=== PATIENT | male | born 1970 | race Caucasian/White ===

== ENCOUNTER 2016-08-21 15:49 | Emergency (ER) | payer SELFPAY ==
[2016-08-21 15:50] VITALS: BMI 21.1
[2016-08-21 16:15] VITALS: TEMP 97.9
--- NOTE | 2016-08-21 16:32 | DIRPT ---
CLINICAL DATA: Shortness of breath, productive cough, smoker, COPD EXAM: CHEST 2 VIEW COMPARISON: None. FINDINGS: Cardiomediastinal silhouette is unremarkable. No acute infiltrate or pleural effusion. Mild perihilar bronchitic changes. Bony thorax is unremarkable. Bilateral nodular nipple shadow noted mid lung. IMPRESSION: No infiltrate or pulmonary edema. Mild perihilar bronchitic changes. Electronically Signed By: Gamaliel Lewis M.D. On: 08/21/2016 16:29
[2016-08-21] MEDS ORDERED: Albuterol/Ipratropium Neb 3 ML NEB NEB ONE (17:25)
[2016-08-21] MEDS ORDERED: METHYLPREDNISOLONE 125 MG/2 ML VIAL IV ONE (17:25)
--- NOTE | 2016-08-21 17:30 | EDPRACDOC ---
- General Information Chief Complaint: Dyspnea/Resp distress Stated Complaint: SHORTNESS OF BREATH Information Source: Patient Home Medications: Home Medications Atenolol Unknown Dose 1 tab PO DAILY 08/21/16 Baclofen 5 mg PO TID 08/21/16 Gabapentin 300 mg PO BID 08/21/16 Gabapentin 600 mg PO QHS 08/21/16 Hydrocodone Bit/Acetaminophen [[place] 10-325 Tablet] 1 tab PO TID 08/21/16 Insulin Isophane/Regular 70-30 [Humulin 70-30] 0 units SQ .SLIDING SCALE Levofloxacin [Levaquin] 750 mg PO DAILY #10 tab 08/21/16 Prednisone [Sterapred DS 10 mg/12 day pack] 48 tab PO DIR #1 pack 08/21/16 Allergies/Adverse Reactions: Allergies Allergy/AdvReac Type Severity Reaction Status Date / Time No Known Allergies Allergy Verified 08/21/16 17:56 - History of Present Illness HPI: C/o inc SOB and productive cough (green) x 3 days. Hx of COPD, DM1. Denies fever , sore throat, body aches, N/V/D, nasal congestion, changes in urine or BM. Tired nebulizer tx at home but states it made it worse. Shortness of Breath: Moderate Relevant History: Reports: COPD Cough: Reports: Productive, Green Rhinorrhea: Reports: Green Ear Symptoms: Reports: None SOB Worsens with: Reports: Exertion, Coughing SOB Improves with: Reports: Sitting up, Inhaler (symbicort) Associated Signs and symptoms: Reports: Cough ED Past Medical History - History Reviewed Yes Nurses notes reviewed and agree except as marked - Patient Medical History Respiratory History: Reports: COPD, Emphysema Psychological History: Denies: Depression Systemic History: Reports: Diabetes (INSULIN DEPEND.) - Social Medical History Smoking Status: Heavy tobacco smoker (5 or more cigarettes/day or daily pipe/ cigar) EDM Review of Systems - Review of Systems ROS Negative Except as Marked: Yes All systems reviewed and were negative except as marked Respiratory: Cough, Shortness of Breath Endocrine: Diabetes - Physical Exam Constitutional: Alert Oriented to: Time, Person, Place Last recorded Vital Signs: Last Vital Signs Temp 97.9 F 08/21/16 16:11 Pulse 100 08/21/16 16:51 Resp 20 08/21/16 16:51 BP 179/92 08/21/16 16:51 Pulse Ox 92 08/21/16 16:51 Oxygen Pulse Oxygen Saturation 92 O2 Device Room Air Oxygen Flow Rate Fraction of Inspired Oxygen ( FIO2) - HEENT Head: Normal Eye Exam: negative: Conjunctival Injection, Scleral Icterus Oropharynx: negative: Drooling TMJ: Normal Nose: Congestion Neck: Normal - Respiratory/Cardiovascular Respiratory: Rhonchi (bilateral) Cardiovascular: Normal - GI Tenderness: Non tender - Musculoskeletal Back: Normal Extremities: Normal - Integumentary Skin: Normal - Neurologic Mood Description: Normal Thought: Coherent ED SOB MDM - Results Result Diagrams: 08/21/16 17:43 08/21/16 17:43 Results: POC Capillary Glucose 80 MG/DL (70-99) 08/21/16 16:16 Lab Results 08/21/16 16:16 POC Capillary Glucose 80 - Additional Information Additional Information: Pt O2 sats 92-94 on RA. Decision Time to Discharge: 18:39 - Departure Disposition: Home Condition: Stable Final Diagnosis: COPD (chronic obstructive pulmonary disease) with acute bronchitis Instructions: Upper Respiratory Infection (ED), Acute Bronchitis (ED), COPD ( Chronic Obstructive Pulmonary Disease) (ED) Education/Counseling Given To: Patient Education/Counseling Given Regarding: Diagnosis, Treatment, Prognosis, Follow Up Referrals: None,No Provider [Primary Care Provider] - One Week Leroy Garcia MD [Staff Physician] - One Week Prescriptions: Levofloxacin [Levaquin] 750 mg PO DAILY #10 tab Prednisone [Sterapred DS 10 mg/12 day pack] 48 tab PO DIR #1 pack Additional Instructions: Follow up with primary care. Use albuterol inhaler 2 puffs every 4 hrs. Return to ED for any new or worsening symptoms.
[2016-08-21 17:51] LABS: AUTOMATED BASOPHIL 0.8 % (0-2); AUTOMATED EOSINOPHIL 2.9 % (0-5); AUTOMATED LYMPH 25.2 % (17-44); AUTOMATED MONOCYTE 12.5 % (3-10); AUTOMATED NEUTROPHIL 58.6 % (45-76); MPV 8.8 fL (7.4-10.4)
[2016-08-21 17:59] LABS: BLOOD UREA NITROGEN 10 MG/DL (9-20); CALC CORRECTED 9.2 MG/DL (8.4-10.2); CALCIUM 9.1 MG/DL (8.4-10.2); CALCULATED OSMOLALITY 258 MOs/Kg (270-290); CHLORIDE 95 mEq/L (98-107); SODIUM LEVEL 136 mEq/L (137-146); TOTAL PROTEIN 7.3 G/DL (6.3-8.2)
[2016-08-21 18:23] LABS: GLUCOSE 45 MG/DL (70-99)
[2016-08-21] MEDS ORDERED: LEVOFLOXACIN 750 MG TAB PO ONE (18:39)
[2016-08-21] MEDS ORDERED: ALBUTEROL 6.7 GM MDI INH ONE (18:46)
[2016-08-21 19:32] VITALS: BP 172/88; PULSE 95
== END 2016-08-21 19:00 | disposition home or self-care (01) ==
LOC: ED 15:49
DX: J44.0 Chronic obstructive pulmonary disease with (acute) lower respiratory infection (principal); J20.9 Acute bronchitis, unspecified
CPT/HCPCS: 36415; 71020; 80053; 82962; 85025; 94640; 96374; 99283; J2930; J3490; J7620